=== PATIENT | female | born 1940 | race Caucasian/White ===

== ENCOUNTER 2024-02-14 15:22 | Emergency (ER) | payer MEDICARE, OTHER ==
[~2024-02-14] VITALS: Ht 157.5 cm; Wt 71.4 kg
[2024-02-14 16:10] VITALS: TEMP 97.9
[2024-02-14 17:02] LABS: BASOPHILS % (AUTO) 0.4 % (0.0-2.0); EOSINOPHILS % (AUTO) 1.3 % (1.0-6.0); HEMATOCRIT 36.7 % (36-46); HEMOGLOBIN 12.4 g/dL (12.0-16.0); LYMPHOCYTES % (AUTO) 27.7 % (22.0-44.0); MEAN CORPUSCULAR HEMOGLOBIN 32.9 pg (26.0-34.0); MEAN CORPUSCULAR HGB CONC 33.9 G/dL (31.0-37.0); MEAN CORPUSCULAR VOLUME 97 fL (80-100); MONOCYTES # (AUTO) 0.7 K/uL (0.1-1.0); MONOCYTES % (AUTO) 10.1 % (2.0-9.0); NEUTROPHILS # (AUTO) 4.4 K/uL (1.8-7.7); NEUTROPHILS % (AUTO) 60.5 % (40.0-70.0); PLATELET COUNT (AUTO) 300 K/uL (150-450); RED BLOOD CELL COUNT(AUTO) 3.77 MIL/uL (4.00-5.20); RED CELL DISTRIBUTION WIDTH 13.2 % (11.5-14.5); WHITE BLOOD COUNT (AUTO) 7.3 K/uL (4.5-11.0)
[2024-02-14 17:12] LABS: CALCIUM, TOTAL 8.6 mg/dL (8.8-10.5); CREATININE 1.17 mg/dL (0.60-1.30)
[2024-02-14 17:18] LABS: ALBUMIN 3.1 g/dL (3.4-5.0); BILIRUBIN,TOTAL 0.3 mg/dL (0.1-1.0); TOTAL PROTEIN, SERUM 6.5 g/dL (6.4-8.2)
[2024-02-14 17:20] LABS: TROPONIN I-HIGH SENSITIVITY 15 ng/L (<51)
[2024-02-14 21:07] VITALS: BP 160/78; PULSE 65; RESP 15
== END 2024-02-14 21:14 | disposition home or self-care (01) ==
LOC: EMS 15:23
DX: R55 Syncope and collapse (principal); I10 Essential (primary) hypertension; J45.909 Unspecified asthma, uncomplicated; Z88.0 Allergy status to penicillin; Z88.2 Allergy status to sulfonamides
CPT/HCPCS: 70450; 80053; 83690; 84484; 85025; 93005; 99284